=== PATIENT | female | born 1975 | race Caucasian/White ===

== ENCOUNTER → 2017-01-09 | Outpatient (CLI) | payer BC ==
[~2017-01-09] MED LIST: /ADVA50050 IN; ALBU83IN IN; DEPO-PROVERA IM; DICL25TA OR; FLEXERIL PO; NAPR375T OR; NEXI20CA OR; TRAM50TA2 OR; VICO5TAB OR; VITAMIN D50000 UNT OR
--- NOTE | 2017-01-10 10:15 | REPMRS ---
Patient History The patient states she had a clinical breast exam in 01/2016. Patient is nulliparous. Family history of colorectal cancer in paternal grandfather and breast cancer in maternal aunt. Taking hormonal contraceptives for 10 years. Digital Woman Screen Mammo: January 09, 2017 - Exam #: [id number] Bilateral CC and MLO view(s) were taken. Technologist: Nanci Villatoro, Technologist FINDINGS: There are scattered fibroglandular densities. There is no evidence of cancer on this mammogram. ASSESSMENT: BI-RADS/ACR category 2 mammogram. Benign finding(s). Recommendation Routine screening mammogram of both breasts in 1 year (for women over age 40). This mammogram was interpreted with the aid of an FDA-approved computer-aided dectection system. Electronically Signed By: Mihir Asencio MD 01/10/17 1014
== END ==
LOC: M WHC 16:00
PROVIDERS: ATTEND Specialist
DX: Z12.31 Encounter for screening mammogram for malignant neoplasm of breast (principal); Z92.89 Personal history of other medical treatment

== ENCOUNTER → 2017-04-21 | Outpatient (REF) | payer BC | LOC: M LAB REF 17:35 | PROVIDERS: ATTEND Advanced Practice Midwife | DX: Z12.4 Encounter for screening for malignant neoplasm of cervix (principal) ==

== ENCOUNTER → 2017-09-15 | Outpatient (REF) | payer BC | LOC: M LAB REF 18:04 | PROVIDERS: ATTEND Dermatology | DX: L72.3 Sebaceous cyst (principal) ==

== ENCOUNTER → 2018-06-01 | Outpatient (REF) | payer BC ==
[2018-06-03 14:17] LABS: HPV HYBRID CAPTURE II Negative (Negative)
== END ==
LOC: M LAB REF 19:29
DX: Z12.4 Encounter for screening for malignant neoplasm of cervix (principal)
CPT/HCPCS: G0123

== ENCOUNTER 2018-08-13 11:31 | Day surgery (SDC) | payer BC ==
[~2018-08-13 11:31] MED LIST changes: -/ADVA50050 IN; -ALBU83IN IN; -DEPO-PROVERA IM; -DICL25TA OR; -FLEXERIL PO; +LIDOCAINE 2% INJ 100 MG/5 ML SDV (FOR ANES.) As Ordered; -NAPR375T OR; -NEXI20CA OR; +NS 1,000 ML IV; +PROPOFOL 200 MG/20 ML VIAL As Ordered; -TRAM50TA2 OR; -VICO5TAB OR; -VITAMIN D50000 UNT OR; +fentaNYL 100 MCG/2 ML INJECTION (J3010) As Ordered
[2018-08-13 12:13] LABS: BASO % 0.3 % (0.0-1.0); EOS # 0.1 10^3/uL (0.0-0.50); EOS % 1.1 % (0.0-3.0); HEMOGLOBIN 7.3 g/dl (12.0-15.5); IMMATURE GRANULOCYTE % 0.3 % (0-3.0); LYMPH % 32.7 % (24.0-44.0); MEAN CORPUSCULAR HEMOGLOBIN 18.8 pg (27.0-33.0); MEAN CORPUSCULAR HGB CONC 28.1 g/dl (32.0-36.5); MONO # 0.5 10^3/uL (0.0-0.8); MONO % 8.8 % (0.0-5.0); NEUTROPHILS # 3.5 10^3/uL (1.8-7.7); NEUTROPHILS % 56.8 % (36.0-66.0); PLATELET COUNT, AUTOMATED 451 10^3/uL (150-450); RED BLOOD COUNT 3.88 10^6/uL (4.00-5.40); RED CELL DISTRIBUTION WIDTH 18.4 % (11.5-14.5); WHITE BLOOD COUNT 6.2 10^3/uL (4.0-10.0)
[2018-08-13 12:47] LABS: FERRITIN 1 NG/ML (8-252); IRON (FE) 14 UG/DL (50-170); PERCENT SATURATION 3.7 % (13.2-45.0); TOTAL IRON BINDING CAPACITY 382 UG/DL (250-450)
[2018-08-13 14:57] LABS: FOLATE 14.3 NG/ML
== END 2018-08-13 13:03 | disposition home or self-care (01) ==
LOC: M OPP 13:03
DX: R13.10 Dysphagia, unspecified (principal); K21.9 Gastro-esophageal reflux disease without esophagitis; K22.8 Other specified diseases of esophagus; Z98.0 Intestinal bypass and anastomosis status; B37.81 Candidal esophagitis; J45.909 Unspecified asthma, uncomplicated; D50.9 Iron deficiency anemia, unspecified; E66.9 Obesity, unspecified; Z98.84 Bariatric surgery status; Z87.442 Personal history of urinary calculi; Z88.8 Allergy status to other drugs, medicaments and biological substances; Z79.899 Other long term (current) drug therapy; Z80.0 Family history of malignant neoplasm of digestive organs; Z80.3 Family history of malignant neoplasm of breast
CPT/HCPCS: 43239

== ENCOUNTER → 2018-11-06 | Outpatient (CLI) | payer BC ==
[~2018-11-06] MED LIST changes: +/ADVA50050 IN; +ADV250INH INH; +ALBU83IN IN; +CALCTAB52 PO; +CLAR10CA3 PO; +DEPO-PROVERA IM; +DEPO150I IM; +DICL25TA OR; +FLEXERIL PO; +FLON1SPR NARES; -LIDOCAINE 2% INJ 100 MG/5 ML SDV (FOR ANES.) As Ordered; +MULT1TAB10 PO; +NAPR375T OR; +NEXI20CA OR; -NS 1,000 ML IV; +OMEP20CA3 PO; +PHILCAP4 PO; +PROAAER10 INH; -PROPOFOL 200 MG/20 ML VIAL As Ordered; +SING10TA32 PO; +TRAM50TA2 OR; +VICO5TAB OR; +VITAMIN D50000 UNT OR; -fentaNYL 100 MCG/2 ML INJECTION (J3010) As Ordered
[2018-11-06 19:11] LABS: BASO % 0.4 % (0.0-1.0); EOS # 0.1 10^3/uL (0.0-0.50); EOS % 1.6 % (0.0-3.0); HEMATOCRIT 32.5 % (36.0-47.0); HEMOGLOBIN 9.3 g/dl (12.0-15.5); LYMPH # 3.1 10^3/uL (1.5-4.5); LYMPH % 46.4 % (24.0-44.0); MEAN CORPUSCULAR HEMOGLOBIN 21.2 pg (27.0-33.0); MEAN CORPUSCULAR HGB CONC 28.6 g/dl (32.0-36.5); MONO # 0.5 10^3/uL (0.0-0.8); MONO % 6.7 % (0.0-5.0); NEUTROPHILS % 44.6 % (36.0-66.0); PLATELET COUNT, AUTOMATED 419 10^3/uL (150-450); RED BLOOD COUNT 4.39 10^6/uL (4.00-5.40); WHITE BLOOD COUNT 6.7 10^3/uL (4.0-10.0)
[2018-11-06 19:31] LABS: ALBUMIN 3.6 GM/DL (3.2-5.2); ALT/SGPT 13 U/L (12-78); BILIRUBIN,TOTAL 0.2 MG/DL (0.2-1.0); BLOOD UREA NITROGEN 14 MG/DL (7-18); CALCIUM LEVEL 8.8 MG/DL (8.5-10.1); CARBON DIOXIDE LEVEL 23 MEQ/L (21-32); CHLORIDE LEVEL 108 MEQ/L (98-107); CREATININE FOR GFR 0.49 MG/DL (0.55-1.30); FERRITIN 33 NG/ML (8-252); GLOMERULAR FILTRATION RATE > 60.0 (>58); GLUCOSE, FASTING 83 MG/DL (70-100); IRON (FE) 24 UG/DL (50-170); LDH LACTATE DEHYDROGENASE 193 U/L (84-246); POTASSIUM SERUM 4.2 MEQ/L (3.5-5.1); SODIUM LEVEL 138 MEQ/L (136-145); TOTAL IRON BINDING CAPACITY 341 UG/DL (250-450); TOTAL PROTEIN 7.1 GM/DL (6.4-8.2)
[2018-11-06 19:39] LABS: VITAMIN B12 LEVEL 383 PG/ML (247-911)
[2018-11-06 19:40] LABS: FOLATE 4.4 NG/ML (>5.4)
[2018-11-10 00:06] LABS: HOMOCYST(E)INE SERUM 10.7 umol/L (0.0-15.0)
== END ==
LOC: M LAB 17:03
PROVIDERS: ATTEND Internal Medicine Hematology & Oncology
DX: D50.9 Iron deficiency anemia, unspecified (principal)

== ENCOUNTER → 2018-12-24 | Outpatient (CLI) | payer BC ==
[~2018-12-24] MED LIST changes: +[UNRECOGNIZED DRUG - CODE] SL
== END ==
LOC: M SMT 09:13
PROVIDERS: ATTEND Advanced Practice Midwife
DX: Z13.79 Encounter for other screening for genetic and chromosomal anomalies (principal)

== ENCOUNTER → 2019-06-11 | Outpatient (REF) | payer BC ==
[~2019-06-11] MED LIST changes: -/ADVA50050 IN; +ADVA1AER2 IN; -OMEP20CA3 PO; +OMEP20CA4 PO
[2019-06-15 15:06] LABS: HPV HYBRID CAPTURE II Positive (Negative)
== END ==
LOC: M LAB REF 17:08
PROVIDERS: ATTEND Advanced Practice Midwife
DX: Z12.4 Encounter for screening for malignant neoplasm of cervix (principal)
CPT/HCPCS: 87624; G0123

== ENCOUNTER → 2019-08-06 | Outpatient (CLI) | payer BC ==
[~2019-08-06] MED LIST changes: +CALC500C16 PO; +MULTTAB61 PO
--- NOTE | 2019-08-06 11:35 | REPMRS ---
Patient History The patient states she had a clinical breast exam in June 2019. Family history of breast cancer in maternal aunt, colorectal cancer in paternal grandfather. Taking hormonal contraceptives for 10 years. 3D TOMOSYNTHESIS WAS PERFORMED. [facility] Digital Mammo Screening Bilat: August 06, 2019 - Exam #: [id number] Bilateral CC and MLO view(s) were taken. Technologist: Rena Guerra, Technologist Prior study comparison: January 09, 2017, digital woman screen mammo, performed at [facility]. FINDINGS: There are scattered fibroglandular densities. There has been no change in the appearance of the mammogram from the prior studies. There is a mild amount of residual fibroglandular tissue which is fairly symmetric. There is no interval development of dominant mass, architectural distortion, or clustered microcalcification suggestive of malignancy. Assessment: BI-RADS/ACR category 1 mammogram. Negative Mammogram. Recommendation Routine screening mammogram in 1 year (for women over age 40). This mammogram was interpreted with the aid of an FDA-approved computer-aided dectection system. Electronically Signed By: Mihir Asencio MD 08/06/19 4553
== END ==
LOC: M RAD 09:03
PROVIDERS: ATTEND Advanced Practice Midwife
DX: Z12.31 Encounter for screening mammogram for malignant neoplasm of breast (principal)

== ENCOUNTER → 2019-08-06 | Outpatient (REF) | payer BC ==
[~2019-08-06] MED LIST changes: +B-12100010 PO; +OMEP1CAP73 PO; -OMEP20CA4 PO; +OXYC1TAB23 PO
== END ==
LOC: M LAB REF 17:02
PROVIDERS: ATTEND Obstetrics & Gynecology
DX: R87.810 Cervical high risk human papillomavirus (HPV) DNA test positive (principal)

== ENCOUNTER 2019-10-22 06:39 | Day surgery (SDC) | payer BC ==
[~2019-10-22] VITALS: Ht 154.9 cm; Wt 133.7 kg
[~2019-10-22 06:39] MED LIST changes: +OMEP-172 PO; -OMEP1CAP73 PO; -OXYC1TAB23 PO
[2019-10-22] MEDS ORDERED: LR 1,000 ML IV ONE (07:00)
[2019-10-22] MEDS ORDERED: SUGAMMADEX SODIUM 500 MG/5 ML VIAL (BRIDION) As Ordered ONE (07:51)
[2019-10-22] MEDS ORDERED: dexameTHASONE 4 MG/ML 1ML VIAL (J1100) As Ordered ONE (07:51)
[2019-10-22] MEDS ORDERED: ONDANSETRON 4MG/2ML VIAL (J2405) As Ordered ONE ×2 (07:51→10:16)
[2019-10-22] MEDS ORDERED: ROCURONIUM BROMIDE 50 MG/5 ML VIAL As Ordered ONE (07:51)
[2019-10-22] MEDS ORDERED: LIDOCAINE 2% INJ 100 MG/5 ML SDV (FOR ANES.) As Ordered ONE (07:51)
[2019-10-22] MEDS ORDERED: KETOROLAC 60 MG/2 ML VIAL (J1885) As Ordered ONE (07:51)
[2019-10-22] MEDS ORDERED: MIDAZOLAM INJ 2 MG/2 ML VIAL (J2250) As Ordered ONE (07:51)
[2019-10-22] MEDS ORDERED: ACETAMINOPHEN 1000MG 100ML IV BTL (OFIRMEV) (J0131 PER 10MG) As Ordered ONE (07:51)
[2019-10-22] MEDS ORDERED: PROPOFOL 200 MG/20 ML VIAL As Ordered ONE (07:51)
[2019-10-22] MEDS ORDERED: fentaNYL 100 MCG/2 ML INJECTION (J3010) As Ordered ONE ×3 (07:52→10:16)
[2019-10-22] MEDS ORDERED: IODINE STRONG SOLN 15 ML BTL As Ordered ONE (07:57)
[2019-10-22] MEDS ORDERED: LIDOCAINE W/EPINEPHRINE 1% 20ML VIAL As Ordered ONE (07:57)
[2019-10-22] MEDS ORDERED: BUPIVACAINE HCL 0.25% 30 ML VIAL As Ordered ONE (07:57)
[2019-10-22 08:11] LABS: HCG, SERUM QUALITATIVE NEGATIVE (NEGATIVE)
[2019-10-22] MEDS ORDERED: OXYC1TAB23 PO (08:37)
[2019-10-22] MEDS ORDERED: PERCOCET 5MG/325MG TAB As Ordered ONE (10:16)
[2019-10-22] MEDS: fentaNYL 100 MCG/2 ML INJECTION (J3010) IV PRN ×4 (10:16→10:31)
[2019-10-22] MEDS: PERCOCET 5MG/325MG TAB PO PRN ×2 (10:16→11:10)
[2019-10-22] MEDS ORDERED: PERCOCET 5MG/325MG TAB PO PRN (10:30)
[2019-10-22] MEDS ORDERED: METOCLOPRAMIDE INJ 10MG/2ML VIAL (J2765) IV PRN (10:30)
[2019-10-22] MEDS ORDERED: LR 1,000 ML IV SCH (10:30)
[2019-10-22] MEDS ORDERED: ONDANSETRON 4MG/2ML VIAL (J2405) IV PRN (10:30)
[2019-10-22 12:00] VITALS: BP 129/77
--- NOTE | 2019-11-08 17:55 | ROOPDOC ---
[facility] Report Of Operation Report of Operation DATE OF PROCEDURE: 10/22/19 PREOPERATIVE DIAGNOSIS: 1. 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 Cervical dysplasia POSTOPERATIVE DIAGNOSIS: 1. 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 2. Cervical dysplasia PROCEDURE PERFORMED: 1. Bilateral salpingo-oophorectomy. 2. Loop electrosurgical excision procedure. SURGEON: Evelina Cheung MD SHINGLER: Joshua Orellana DO ANESTHESIA: General endotracheal anesthesia. ESTIMATED BLOOD LOSS: 50 mL. INTRAVENOUS FLUIDS: 900 mL Lactated Ringer's solution. URINE OUTPUT: 400 mL. PREOPERATIVE ANTIBIOTICS: None. OPERATIVE FINDINGS: Normal pelvic anatomy SPECIMEN: Bilateral adnexa and cervical LEEP DESCRIPTION OF OPERATION: After informed consent was obtained and written consent was reviewed, the patient was brought to the operating room where general endotracheal anesthesia was obtained. She was then placed in lithotomy position, was prepped and draped in a normal sterile fashion. A time out in the operating room was then performed identifying the patient, procedure to be performed, as well as drug allergies. A Gracia catheter was placed. A sponge stick was then placed in the vagina. Gloves were changed and attention was turned to the patient's abdomen was 0.25% Marcaine was infused in the infraumbilical area. The area was incised and an 11 mm trocar and sleeve was advanced through this incision. Laparoscope was then replaced revealing intra-abdominal placement. The pneumoperitoneum was then obtained with CO2 gas. Two additional port sites were placed, one at each side of the umbilicus. These areas were infused with 0.25% Marcaine. Incision was made in each one of these areas and a 5 mm trocar and sleeve was advanced through each one of these incisions under visualization. Next, the abdomen was then surveyed with the above noted findings. The bilateral infundibulopelvic ligaments where placed on traction using Harmonic Emmanuel scalpel device, were cauterized and ligated with good hemostasis noted. The specimen were placed in Endo Catch bag and was removed from the patient's abdomen. Surgical sites were inspected and noted to be hemostatic. The abdomen was then irrigated and suctioned. The pneumoperitoneum was then released along with instruments. Trocars were removed. The fascia at the umbilical port site was closed with #0 Vicryl. The subcutaneous area in this area was reapproximated with #3-0 Vicryl. The skin of all three port sites were closed with #4-0 Monocryl and dressed with DERMABOND. The sponge stick was removed as well as the Gracia catheter. LEEP (Loop electrosurgical excision procedure. ) An insulated speculum was placed with adequate cervical visualization obtained. The grounding pad was placed. The suction apparatus was in place and functional. With a single pass of a 8 x 20 mm Loop, the cervical specimen was excised. The setting on the electric generator were: 90 jones of cutting current and 80 jones of coagulation current Monsel's solution was applied to the biopsy site. Hemostasis was assured. The patient was then taken out of lithotomy position, was awakened from general anesthesia, and taken to recovery in stable condition. Dr. Orellana, neurosurgical nurse practitioner, played an essential role in the operation with port placement, tissue retraction, and identification of structures as well as wound closure. EVELINA CHEUNG MD. Nov 08, 2019 17:55
== END 2019-10-22 12:38 | disposition home or self-care (01) ==
LOC: M SDC 06:39
PROVIDERS: ATTEND Obstetrics & Gynecology
DX: Z15.02 Genetic susceptibility to malignant neoplasm of ovary (principal); N83.01 Follicular cyst of right ovary; N83.02 Follicular cyst of left ovary; J45.909 Unspecified asthma, uncomplicated; D50.9 Iron deficiency anemia, unspecified; R12 Heartburn; M19.90 Unspecified osteoarthritis, unspecified site; E66.9 Obesity, unspecified; Z68.43 Body mass index [BMI] 50.0-59.9, adult; Z98.84 Bariatric surgery status; Z88.8 Allergy status to other drugs, medicaments and biological substances; Z79.899 Other long term (current) drug therapy; Z79.51 Long term (current) use of inhaled steroids
CPT/HCPCS: 36415; 57522; 58661; 84703; 86850; 86900; 86901; 88304; 88307; J0131; J1100; J2250; J2405; J3010

== ENCOUNTER → 2021-04-13 | Outpatient (REF) | payer BC ==
[~2021-04-13] MED LIST changes: +AMIT25TA17 PO; +NEUR300C PO; -OMEP-172 PO; +OMEP1CAP73 PO; +OXYC1TAB23 PO
== END ==
LOC: M SFHCWAGY 13:12
PROVIDERS: ATTEND Advanced Practice Midwife
DX: Z12.4 Encounter for screening for malignant neoplasm of cervix (principal); R87.613 High grade squamous intraepithelial lesion on cytologic smear of cervix (HGSIL); R87.810 Cervical high risk human papillomavirus (HPV) DNA test positive
CPT/HCPCS: 87624; G0123

== ENCOUNTER → 2021-06-11 | Outpatient (CLI) | payer BC ==
[~2021-06-11] MED LIST changes: +GLUC1TAB58 PO; +PERCOCET PO
== END ==
LOC: M LABSMTC 11:52
PROVIDERS: ATTEND Anesthesiology
DX: Z01.818 Encounter for other preprocedural examination (principal)

== ENCOUNTER 2021-06-15 10:30 | Day surgery (SDC) | payer BC ==
[~2021-06-15] VITALS: Ht 154.9 cm; Wt 135.6 kg
[2021-06-15] VITALS (8 sets, daily range): BP systolic 118–171; BP diastolic 60–95
[~2021-06-15 10:30] MED LIST changes: +LR 1,000 ML IV ONE; -PERCOCET PO
[2021-06-15 10:57] LABS: HEMATOCRIT 41.3 % (36.0-47.0); HEMOGLOBIN 13.4 g/dl (12.0-15.5); MEAN CORPUSCULAR HEMOGLOBIN 28.5 pg (27.0-33.0); MEAN CORPUSCULAR HGB CONC 32.4 g/dl (32.0-36.5); MEAN CORPUSCULAR VOLUME 87.9 fl (80.0-96.0); PLATELET COUNT, AUTOMATED 337 10^3/uL (150-450); WHITE BLOOD COUNT 6.7 10^3/uL (4.0-10.0)
[2021-06-15] MEDS ORDERED: fentaNYL 250 MCG/5 ML INJECTION (J3010) As Ordered ONE (11:29)
[2021-06-15] MEDS ORDERED: MIDAZOLAM INJ 2MG/2ML VIAL (J2250 PER 1MG) As Ordered ONE (11:29)
[2021-06-15] MEDS ORDERED: ONDANSETRON 4MG/2ML VIAL As Ordered ONE (11:30)
[2021-06-15] MEDS ORDERED: ROCURONIUM BROMIDE 50 MG/5 ML VIAL As Ordered ONE ×3 (11:30→13:48)
[2021-06-15] MEDS ORDERED: dexameTHASONE 4 MG/ML 1ML VIAL (J1100 PER 1MG) As Ordered ONE (11:30)
[2021-06-15] MEDS ORDERED: PHENYLephrine 500MCG 5ML (100MCG/ML) SYRINGE As Ordered ONE (11:30)
[2021-06-15] MEDS ORDERED: ACETAMINOPHEN 1000MG 100ML IV BTL (OFIRMEV) (J0131 PER 10MG) As Ordered ONE (11:30)
[2021-06-15] MEDS ORDERED: LIDOCAINE 2% 100MG/5ML SDV (FOR ANES.) As Ordered ONE (11:30)
[2021-06-15] MEDS ORDERED: propofoL 200 MG/20 ML VIAL As Ordered ONE (11:30)
[2021-06-15] MEDS ORDERED: SUGAMMADEX SODIUM 500 MG/5 ML VIAL (BRIDION) As Ordered ONE (11:30)
[2021-06-15] MEDS ORDERED: ePHEDrine SULFATE 25 MG/5 ML(5MG/ML) SYRINGE As Ordered ONE (11:30)
[2021-06-15] MEDS ORDERED: BUPIVACAINE HCL 0.25% 30ML VIAL As Ordered ONE (12:21)
[2021-06-15] MEDS ORDERED: SCOPOLAMINE 1MG TRANSDERMAL PATCH TOP ONE (12:25)
[2021-06-15] MEDS ORDERED: ceFAZolin 2 GM/D5W 50 ML IV BAG (J0690 PER 500MG) As Ordered ONE (13:20)
[2021-06-15] MEDS ORDERED: HYDROCORTISONE 100 MG/2 ML VIAL (J1720 PER 1) As Ordered ONE (13:40)
[2021-06-15] MEDS ORDERED: HYDROmorphone HCL 2 MG/ML 1ML VIAL (J1170) As Ordered ONE ×2 (13:41→15:46)
[2021-06-15] MEDS ORDERED: fentaNYL 100 MCG/2 ML INJECTION (J3010) As Ordered ONE (15:23)
[2021-06-15] MEDS: fentaNYL 100 MCG/2 ML INJECTION (J3010) IV PRN ×4 (15:26→15:43)
[2021-06-15] MEDS ORDERED: PERCOCET 5MG/325MG TAB PO PRN ×2 (15:30→17:35)
[2021-06-15] MEDS ORDERED: LR 1,000 ML IV SCH (15:30)
[2021-06-15] MEDS ORDERED: METOCLOPRAMIDE INJ 10MG/2ML VIAL (J2765 PER 1) IV PRN (15:30)
[2021-06-15] MEDS ORDERED: oxyCODONE 5MG TAB PO PRN (15:30)
[2021-06-15] MEDS ORDERED: ONDANSETRON 4MG/2ML VIAL IV PRN (15:30)
[2021-06-15] MEDS ORDERED: MEPERIDINE INJ 25 MG/ML VIAL (J2175) IV PRN (15:30)
[2021-06-15] MEDS: HYDROMORPHONE HCL 0.5 MG/ 0.5 ML SYRINGE (J1170 PER 1) IV PRN ×4 (15:50→16:07)
[2021-06-15] MEDS ORDERED: PERCOCET PO (16:16)
--- NOTE | 2021-06-15 16:20 | ROOPDOC ---
[facility] Report Of Operation Report of Operation DATE OF PROCEDURE: 06/15/21 PREPROCEDURE DIAGNOSES: 1. Persistent cervical dysplasia POSTPROCEDURE DIAGNOSES: 1. Persistent cervical dysplasia PROCEDURES PERFORMED: 1. Robotic-assisted laparoscopic hysterectomy. 2. Cystoscopy. SURGEON: Roz Cheung MD SUPERVISOR AREA: ROSALINA Aguilar ANESTHESIA: General endotracheal anesthesia. ESTIMATED BLOOD LOSS: 50 mL. INTRAVENOUS FLUIDS: 1300 mL lactated Ringer solution. URINE OUTPUT: 100 mL. PREPROCEDURE ANTIBIOTICS: 2g Ancef OPERATIVE FINDINGS: The patient with normal-appearing uterus CYSTOSCOPIC FINDING: Normal bladder mucosa, no foreign objects. Bilateral ureteral jets were observed. SPECIMEN: Uterus and cervix DESCRIPTION OF PROCEDURE: After informed consent was obtained and written consent was reviewed, the patient was brought to the operating room, where general endotracheal anesthesia was obtained. She was then placed in lithotomy position, was prepped and draped in a normal sterile fashion. A time-out in the operating room was then performed, identifying the patient, procedure to be performed, as well as drug allergies. A speculum was then placed, revealing the cervix. The anterior and posterior aspects of the cervix were stitched with a 0 Vicryl. The uterus was then sounded to 7 cm. A small TargAnoxare uterine manipulator was then advanced through the cervical os for means to manipulate the uterus. The cervical cap was applied over the cervix, as well as the vaginal sleeve applied into the vagina. The speculum was removed from the patients vagina. A Gracia catheter was then placed and set to gravity. Gloves were changed, and attention was turned to the patients abdomen, where a Veress needle was placed through the umbilicus. A pneumoperitoneum was then obtained with CO2 gas. The supraumbilical area was infused with 0.25% Marcaine. An incision was made in this area, and a 8 mm trocar and sleeve was advanced through this incision. The laparoscope was then replaced, revealing intra-abdominal placement. Three additional port sites were placed, two to the left side of the patient's abdomen and one to the right. These areas was infused with 0.25% Marcaine. Each one of these areas, incisions were made, and 8 mm trocars and sleeves advanced through each one of these incisions under direct visualization. Next, the da Brandon was then docked, utilizing a camera arm and two operative arms. The patient's abdomen was then surveyed with the above-noted finding. Next, the round ligaments bilaterally were cauterized and ligated with good hemostasis noted. The anterior and posterior aspects of broad ligaments were . The anterior leaf of the broad ligament was cauterized and ligated and dissected along the bladder, creating a bladder flap. The remainder of the broad and cardinal ligaments were then cauterized and ligated with good hemostasis noted. The uterine arteries were skeletonized bilaterally and were cauterized and transected with good hemostasis noted. Anterior and posterior colpotomies were made using monopolar scissors. The uterus was then brought out through the vaginal incision. The surgical sites were inspected and noted to be hemostatic. The vaginal cuff was then closed using 2-0 V-Loc system in a running fashion. James was then applied over the surgical field. The pneumoperitoneum was then released. Next, the cystoscopy was then performed. Utilizing a 70-degree cystoscope, it was advanced transurethrally through the bladder. The bladder was surveyed, showing normal bladder mucosa, no foreign bodies. The bilateral ureteral jets were observed. The cystoscope was then removed. The bladder was then drained. Gloves were changed. Attention was then turned to the patients abdomen, where all four port sites were closed with 4-0 Monocryl and dressed with Dermabond. The patient was then taken out of lithotomy position and was awakened from general anesthesia and taken to recovery in stable condition. Counts were correct. Vanessa Anand, my neurosurgical physician assistant, played a central role in the operation. She assisted with port placement, tissue retraction and identification, as well as wound closure. ROZ CHEUNG MD. Jun 15, 2021 16:20
[2021-06-15] MEDS ORDERED: PROMETHAZINE INJ 25 MG/ML VIAL (J2550) IV PRN (17:35)
[2021-06-15] MEDS: LR 1,000 ML IV SCH ×2 (17:55→19:54)
[2021-06-15] MEDS: PERCOCET 5MG/325MG TAB PO PRN (19:58)
[2021-06-16] MEDS: PERCOCET 5MG/325MG TAB PO PRN (00:02)
[2021-06-16 03:15] VITALS: BP 127/74
[2021-06-16 08:00] VITALS: BP 114/58
== END 2021-06-16 09:45 | disposition home or self-care (01) ==
LOC: M SDC 10:30 → M OBS 17:55 → M SDC 06-16 09:45
PROVIDERS: ATTEND Obstetrics & Gynecology
DX: D06.9 Carcinoma in situ of cervix, unspecified (principal); K21.9 Gastro-esophageal reflux disease without esophagitis; D50.9 Iron deficiency anemia, unspecified; M19.90 Unspecified osteoarthritis, unspecified site; M54.9 Dorsalgia, unspecified; G43.909 Migraine, unspecified, not intractable, without status migrainosus; J45.909 Unspecified asthma, uncomplicated; Z87.442 Personal history of urinary calculi; Z98.84 Bariatric surgery status; Z88.8 Allergy status to other drugs, medicaments and biological substances; Z79.899 Other long term (current) drug therapy; Z79.51 Long term (current) use of inhaled steroids
CPT/HCPCS: 36415; 58570; 81025; 85027; 86850; 86900; 86901; 88307; 96360; 96361; J0131; J0690; J1100; J1170; J2250; J2370; J2405; J3010; S2900

== ENCOUNTER → 2021-07-23 | Outpatient (CLI) | payer BC ==
[~2021-07-23] MED LIST changes: -LR 1,000 ML IV ONE; +PERCOCET PO
--- NOTE | 2021-07-23 14:43 | REP ---
INDICATION: BREAST CANCER SCREENING. COMPARISON: Multiple prior screening examinations, the most recent, 08/06/2019 TECHNIQUE: Digital screening (2D) mammography was performed bilaterally in the CC and MLO projections. Additionally, breast tomosynthesis (3D mammography) was performed bilaterally in the CC and MLO projections. FINDINGS: Patient is a 45-year-old with a family history of breast cancer in an aunt. The patient has no history of breast surgery and has no specific breast complaints this time. The Volpara volumetric breast density pattern is A, the breasts are almost entirely fatty. There are stable benign intramammary lymph nodes, bilaterally. There are no suspicious calcifications, areas of architectural distortion or developing asymmetry is in either breast. There is no significant change. IMPRESSION: BIRADS/ACR 2: Benign finding. This patient's Tyrer-Cuzick lifetime breast cancer risk assessment score is 14.3%. This mammogram was interpreted with the aid of an FDA-approved computer-aided detection system. The patient states she had a clinical breast exam in April 2021. The patient letter being requested is M2. RECOMMENDATION: Repeat screening mammography recommended 1 year (for women over 40). <Electronically signed by Jerod Bautista > 07/23/21 2421
== END ==
LOC: M WHC 09:07
PROVIDERS: ATTEND Advanced Practice Midwife
DX: Z12.31 Encounter for screening mammogram for malignant neoplasm of breast (principal); Z80.3 Family history of malignant neoplasm of breast

== ENCOUNTER → 2022-02-12 | Outpatient (CLI) | payer BC ==
[2022-02-12 09:51] LABS: BASO % 0.6 % (0.0-1.0); EOS # 0.2 10^3/uL (0.0-0.5); EOS % 2.3 % (0.0-3.0); HEMATOCRIT 41.6 % (36.0-47.0); HEMOGLOBIN 13.5 g/dl (12.0-15.5); LYMPH # 2.4 10^3/uL (1.5-5.0); LYMPH % 35.6 % (24.0-44.0); MEAN CORPUSCULAR HEMOGLOBIN 28.8 pg (27.0-33.0); MEAN CORPUSCULAR HGB CONC 32.5 g/dl (32.0-36.5); MEAN CORPUSCULAR VOLUME 88.9 fl (80.0-96.0); MONO # 0.6 10^3/uL (0.0-0.8); MONO % 8.1 % (2.0-8.0); NEUTROPHILS # 3.6 10^3/uL (1.5-8.5); NEUTROPHILS % 53.1 % (36.0-66.0); PLATELET COUNT, AUTOMATED 381 10^3/uL (150-450); RED BLOOD COUNT 4.68 10^6/uL (4.00-5.40); WHITE BLOOD COUNT 6.8 10^3/uL (4.0-10.0)
[2022-02-12 10:26] LABS: ALBUMIN 3.4 GM/DL (3.2-5.2); ALT/SGPT 34 U/L (12-78); BILIRUBIN,TOTAL 0.3 MG/DL (0.2-1.0); BLOOD UREA NITROGEN 13 MG/DL (7-18); CALCIUM LEVEL 9.2 MG/DL (8.5-10.1); CARBON DIOXIDE LEVEL 30 MEQ/L (21-32); CHLORIDE LEVEL 108 MEQ/L (98-107); CHOLESTEROL LEVEL 180 MG/DL (<200); CHOLESTEROL RISK RATIO 2.307 (<5); CREATININE FOR GFR 0.54 MG/DL (0.55-1.30); FERRITIN 149 NG/ML (8-252); FREE T4 1.14 NG/DL (0.76-1.46); GLOMERULAR FILTRATION RATE > 60.0 (>58); GLUCOSE, FASTING 118 MG/DL (70-100); HDL CHOLESTEROL 78 MG/DL (>40); IRON (FE) 85 UG/DL (50-170); LDL CHOLESTEROL 89 MG/DL (<100); NON-HDL-C 102 MG/DL; PERCENT SATURATION 33.2 % (13.2-45.0); POTASSIUM SERUM 4.3 MEQ/L (3.5-5.1); SODIUM LEVEL 142 MEQ/L (136-145); TOTAL IRON BINDING CAPACITY 256 UG/DL (250-450); TOTAL PROTEIN 7.1 GM/DL (6.4-8.2); TRIGLYCERIDES LEVEL 65 MG/DL (<150)
[2022-02-12 10:27] LABS: TOTAL 25(OH) VITAMIN D 20.2 NG/ML (30.0-100.0)
[2022-02-12 10:28] LABS: VITAMIN B12 LEVEL 654 PG/ML
[2022-02-12 10:29] LABS: FOLATE 8.2 NG/ML
== END ==
LOC: M RAD 06:33
PROVIDERS: ATTEND Registered Nurse
DX: Z01.812 Encounter for preprocedural laboratory examination (principal); D51.9 Vitamin B12 deficiency anemia, unspecified; E51.9 Thiamine deficiency, unspecified; E55.9 Vitamin D deficiency, unspecified; E66.01 Morbid (severe) obesity due to excess calories; Z13.220 Encounter for screening for lipoid disorders

== ENCOUNTER → 2022-05-15 | Outpatient (CLI) | payer BC | LOC: M EKG 08:17 | PROVIDERS: ATTEND Registered Nurse | DX: E66.01 Morbid (severe) obesity due to excess calories (principal) ==

== ENCOUNTER → 2022-08-26 | Outpatient (CLI) | payer BC ==
[~2022-08-26] MED LIST changes: +MIRA3350 PO
[2022-08-26 13:40] LABS: BASO % 0.5 % (0.0-1.0); EOS # 0.2 10^3/uL (0.0-0.5); EOS % 2.3 % (0.0-3.0); HEMATOCRIT 41.6 % (36.0-47.0); HEMOGLOBIN 12.7 g/dl (12.0-15.5); LYMPH # 2.5 10^3/uL (1.5-5.0); MEAN CORPUSCULAR HGB CONC 30.5 g/dl (32.0-36.5); MEAN CORPUSCULAR VOLUME 91.8 fl (80.0-96.0); MONO # 0.6 10^3/uL (0.0-0.8); MONO % 7.8 % (2.0-8.0); NEUTROPHILS # 4.2 10^3/uL (1.5-8.5); NEUTROPHILS % 56.3 % (36.0-66.0); PLATELET COUNT, AUTOMATED 305 10^3/uL (150-450); RED BLOOD COUNT 4.53 10^6/uL (4.00-5.40); WHITE BLOOD COUNT 7.5 10^3/uL (4.0-10.0)
[2022-08-26 14:23] LABS: ALBUMIN 3.3 GM/DL (3.2-5.2); ALT/SGPT 26 U/L (12-78); BILIRUBIN,TOTAL 0.6 MG/DL (0.2-1.0); BLOOD UREA NITROGEN 16 MG/DL (7-18); CALCIUM LEVEL 9.3 MG/DL (8.5-10.1); CARBON DIOXIDE LEVEL 30 MEQ/L (21-32); CHLORIDE LEVEL 106 MEQ/L (98-107); CREATININE FOR GFR 0.61 MG/DL (0.55-1.30); FERRITIN 195 NG/ML (8-252); GLOMERULAR FILTRATION RATE > 60.0 (>58); GLUCOSE, FASTING 93 MG/DL (70-100); IRON (FE) 67 UG/DL (50-170); PERCENT SATURATION 29.8 % (13.2-45.0); POTASSIUM SERUM 4.3 MEQ/L (3.5-5.1); SODIUM LEVEL 139 MEQ/L (136-145); TOTAL IRON BINDING CAPACITY 225 UG/DL (250-450)
[2022-08-26 15:17] LABS: VITAMIN B12 LEVEL 792 PG/ML (247-911)
== END ==
LOC: M LABDRWAD 11:32
PROVIDERS: ATTEND Internal Medicine Medical Oncology
DX: D50.9 Iron deficiency anemia, unspecified (principal)

== ENCOUNTER → 2024-06-22 | Outpatient (REF) | payer BC ==
[~2024-06-22] MED LIST changes: -AMIT25TA17 PO; +AMIT25TA19 PO; +MONT-5 PO; -PHILCAP4 PO; +PHILLIPS COLON1 CAP PO; -SING10TA32 PO
[2024-06-22 18:23] LABS: BASO % 0.4 % (0.0-1.0); EOS # 0.2 10^3/uL (0.0-0.5); EOS % 2.3 % (0.0-3.0); HEMOGLOBIN 12.7 g/dl (12.0-15.5); LYMPH # 2.6 10^3/uL (1.5-5.0); LYMPH % 37.6 % (24.0-44.0); MEAN CORPUSCULAR HEMOGLOBIN 29.1 pg (27.0-33.0); MEAN CORPUSCULAR HGB CONC 31.8 g/dl (32.0-36.5); MEAN CORPUSCULAR VOLUME 91.7 fl (80.0-96.0); MONO # 0.6 10^3/uL (0.0-0.8); MONO % 8.1 % (2.0-8.0); NEUTROPHILS # 3.5 10^3/uL (1.5-8.5); NEUTROPHILS % 51.2 % (36.0-66.0); PLATELET COUNT, AUTOMATED 320 10^3/uL (150-450); RED BLOOD COUNT 4.36 10^6/uL (4.00-5.40); WHITE BLOOD COUNT 6.9 10^3/uL (4.0-10.0)
[2024-06-22 18:36] LABS: ALBUMIN 3.4 G/DL (3.2-5.2); ALKALINE PHOSPHATASE 115 U/L (46-116); ALT/SGPT 23 U/L (7.0-40); AST/SGOT 16 U/L (<34); BILIRUBIN,TOTAL 0.2 MG/DL (0.3-1.2); BLOOD UREA NITROGEN 11 MG/DL (9-23); CALCIUM LEVEL 8.9 MG/DL (8.5-10.1); CARBON DIOXIDE LEVEL 27 MMOL/L (20-31); CHLORIDE LEVEL 107 MMOL/L (98-107); CREATININE FOR GFR 0.63 MG/DL (0.55-1.30); FERRITIN 50.2 NG/ML (7.3-270.7); GLOMERULAR FILTRATION RATE > 60.0 (>58); GLUCOSE, FASTING 122 MG/DL (60-100); IRON (FE) 47 UG/DL (50-170); PERCENT SATURATION 16.8 % (13.2-45.0); POTASSIUM SERUM 4.4 MMOL/L (3.5-5.1); SODIUM LEVEL 139 MMOL/L (136-145); TOTAL IRON BINDING CAPACITY 279 UG/DL (250-425); TOTAL PROTEIN 6.9 G/DL (5.7-8.2); VITAMIN B12 LEVEL 576 PG/ML (211-911)
== END ==
LOC: M LABDRWAD 17:22
PROVIDERS: ATTEND Internal Medicine Medical Oncology
DX: D50.9 Iron deficiency anemia, unspecified (principal)

== ENCOUNTER → 2025-03-24 | Outpatient (CLI) | payer OTHER ==
[~2025-03-24] MED LIST changes: -ADV250INH INH; +ADVA1AER9 INH
[2025-03-24 16:08] LABS: BASO % 0.3 % (0.0-1.0); EOS # 0.2 10^3/uL (0.0-0.5); EOS % 1.9 % (0.0-3.0); HEMATOCRIT 40.4 % (36.0-47.0); HEMOGLOBIN 13.1 g/dl (12.0-15.5); LYMPH # 2.6 10^3/uL (1.5-5.0); LYMPH % 30.6 % (24.0-44.0); MEAN CORPUSCULAR HEMOGLOBIN 29.5 pg (27.0-33.0); MEAN CORPUSCULAR HGB CONC 32.4 g/dl (32.0-36.5); MONO # 0.6 10^3/uL (0.0-0.8); NEUTROPHILS # 5.1 10^3/uL (1.5-8.5); NEUTROPHILS % 59.9 % (36.0-66.0); PLATELET COUNT, AUTOMATED 351 10^3/uL (150-450); RED BLOOD COUNT 4.44 10^6/uL (4.00-5.40); WHITE BLOOD COUNT 8.6 10^3/uL (4.0-10.0)
[2025-03-24 16:32] LABS: ALBUMIN 3.5 G/DL (3.2-5.2); ALKALINE PHOSPHATASE 114 U/L (35-104); ALT/SGPT 21 U/L (7.0-40); AST/SGOT 17 U/L (<34); BILIRUBIN,TOTAL 0.4 MG/DL (0.3-1.2); BLOOD UREA NITROGEN 10 MG/DL (9-23); CARBON DIOXIDE LEVEL 28 MMOL/L (20-31); CHLORIDE LEVEL 104 MMOL/L (98-107); CREATININE FOR GFR 0.58 MG/DL (0.55-1.30); GLOMERULAR FILTRATION RATE > 90.0 (>58); GLUCOSE, FASTING 96 MG/DL (60-100); POTASSIUM SERUM 4.6 MMOL/L (3.5-5.1); SODIUM LEVEL 140 MMOL/L (136-145)
== END ==
LOC: M PLALAB 12:18
PROVIDERS: ATTEND Internal Medicine
DX: D64.9 Anemia, unspecified (principal)